=== PATIENT | male | born 1960 | race Two or more races ===

== ENCOUNTER 2019-03-07 07:00 | Emergency (ER) | payer BC, OTHER ==
[~2019-03-07 07:00] MED LIST: ATROPINE SULFATE 0.1 MG/ML 10ML SYRINGE ONE; EPINEPHrine 10 ML SYRINGE (0.1 MG/ML) ONE; LIDOCAINE 2% SYG (PF) 100 MG/5 ML ONE; MAGNESIUM SULFATE SYG 4.06 MEQ/ML SYRINGE ONE; SODIUM BICARB 8.4% 50 ML SYR (1 MEQ/ML) ONE
[2019-03-07 07:21] LABS: Glucose,Whole Blood 239 mg/dL (75-99)
--- NOTE | 2019-03-07 08:36 | ED ---
CPR HPI - General Chief Complaint: Cardiac Arrest/CPR Stated Complaint: Cardiac Arrest Time Seen by Provider: 03/07/19 07:00 Source: patient, police, EMS Mode of arrival: EMS - History of Present Illness Initial Comments: The patient is a 58-year-old previously healthy male who presents emergency Department as a witnessed arrest at home. heard the in distress on the toilet. She found him unresponsive and immediately started CPR. EMS arrived around 5:45 AM and found the patient to be in V. fib. Compressions were initiated. He received multiple rounds of epinephrine, 300 of amiodarone and several defibrillations over the 75 minutes that he received CPR by EMS. He had an episode of V. tach however all remaining rhythm checks from the patient to be in V. fib. He arrives to pr intubated without a pulse. reports that he recently lost a significant amount of weight. 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 No previous history of cardiac disease. No recent illnesses. Remainder of the HPI is limited because the patient's current condition - Related Data Allergies Allergy/AdvReac Type Severity Reaction Status Date / Time Unable to Assess Allergy Verified 03/07/19 07:12 Review of Systems ROS Statement: Those systems with pertinent positive or pertinent negative responses have been documented in the HPI. ROS Other: All systems not noted in ROS Statement are negative. General Exam Limitations: altered mental status General appearance: obtunded Head exam: Present: atraumatic, normocephalic Pupils: Present: mydriatic, other (unreactive. 5 mm bilaterally) ENT exam: Present: mucous membranes dry, other (ET tube occupying oropharynx) Respiratory exam: Present: other (bagged assisted respirations. No spontanous respirations) Cardiovascular Exam: Present: other (no heart sounds auscultated, palpated. No organized rhythm on game agent) GI/Abdominal exam: Present: soft Extremities exam: Present: other (no spontanous movements of his extremities) Back exam: Present: normal inspection Neurological exam: Present: other (GCS of 3. No response to tactile or verbal stimuli) Skin exam: Present: cyanosis, pallor, mottled Medical Decision Making - Medical Decision Making Upon arrival the patient was promptly placed in a trauma bay 1 and chest compressions were continued. The patient is hooked up to the game agent. IV had been established by EMS. Second IV is established. The patient received a liter bolus of normal saline. Endotracheal tube was confirmed by breath sounds and colorimetric change on the end-tidal. ACLS was continued. The patient did receive 5 rounds of epinephrine, 1 atropine, 100 g of lidocaine, 1 amp of bicarb and two, 5 g doses of magnesium for torsades. Rhythm checks demonstrated multiple episodes of V. fib, pea into episodes of a junctional rhythm. Junctional rhythm sustained for approximate 2 minutes before progressing into V. fib. The patient did receive 2 double defibrillation's without success. At 7:40 AM I did discuss the case with Dr. Mathias in regards to any further recommendations however he could not offer any. Family was updated in regards to his condition. requests to see the patient however do wish that we discontinue CPR due to the patient's poor neurologic outcome. Time of is reported at 7:50 AM. I did discuss the case with patient's primary care doctor Dr. Ferris. I also discussed the case with Akbar Holland from the medical claims examiner's office. - Lab Data Lab Results 03/07/19 Range/Units 07:10 POC Glucose (mg/dL) 239 H (75-99) mg/dL POC Glu Stakes Player ID Zoraida Peterson - EKG Data EKG Comments: EKG demonstrates a junctional rhythm with a rate of 27. QRS 98. QTC 353. Significant ST depression V3 through V6 as well as the inferior leads. Critical Care Time Critical Care Time: Yes Critical Care Time: 32 minutes Disposition Clinical Impression: Cardiac arrest Disposition: Referrals: Kathy Ferris DO [Primary Care Provider] - 1-2 days Preliminary Cause of : cardiac arrest
== END 2019-03-07 12:35 | disposition expired ==
LOC: EC 07:00
DX: I46.9 Cardiac arrest, cause unspecified (principal)
CPT/HCPCS: 36415; 99291; 92950; J3475; J2001; J0461; J0171